=== PATIENT | male | born 1980 | race Caucasian/White ===

== ENCOUNTER 2016-09-07 07:40 | Inpatient (IN) | payer OTHER ==
[~2016-09-07] VITALS: Ht 177.8 cm; Wt 83.0 kg
[2016-09-07 10:49] VITALS: BP 135/81
--- NOTE | 2016-09-07 10:49 | NUR ---
Pre-admission: Seen patient in intake at this time. Alert and oriented x 4. Verbally responsive. Able to make his needs known. Able to answer questions on the admission process appropriately. Appears flushed. Respirations even and unlabored. No SOB noted. Skin warm and dry to touch. Abdomen soft and non-distended. BS (+) in all 4 quadrants. No complains of N/V/D or constipation noted. Reports LBM 09/07/2016. Reports allergies to PCN. Denies seizure history. Follows a regular diet at home. Reports having a PCP named Dr. Kevin Lee from [facility] in [facility], last seen was 1 week and a half ago for respiratory symptoms. Patient noted with runny nose and mild cough. Reports having a family hx of ETOH abuse on his paternal side. He states he has 2 kids, 17 and 7 years old in good general health condition. Patient reports being diagnosed with ADHD and anxiety "a few years ago." Substance Use as ff: 1. ETOH - since 13 years old. Patient drinks 2 beers to 1/5 Vodka on the weekends. Last drink was "1 [employer] at 0800 today." Patient states that he has been drinking at this rate everyday for a week and a half. He reports drinking when meth is not available and this has been going on daily for a week and a half. 2. Methamphetamine - since 23 years old. Patient snorts 1/4 oz daily. Last taken was 1 week and a half ago. 3. Xanax - since 13 years old. Patient was prescribed 0.5mg and takes 0.5mg daily but last time he used it was 2 months ago 4. Adderrall - since 13 years old. Patient was prescribed 15 mg a day. Last taken "15 mg, a week ago." Treatment History Patient reports being in a sober living in 2007, patient does not recall name and how many days he stayed. VS: BP 135/81, Pulse 97, RR 16, Temp 98.2, O2 sat 98%. PL 0/10.
[2016-09-07] MEDS ORDERED: AMPH15TA2 PO (11:35)
[2016-09-07] MEDS ORDERED: ALPR0.5T8 PO (11:35)
--- NOTE | 2016-09-07 11:45 | NUR ---
Admission Note: Patient is a 36 year old male who states that he is here to get help from his drinking. Patient is ambulatory ad gonzález with steady gait. Escorted on the unit with BHT. Orientation to the facility and the unit provided. Body search done. No contraband was found. Skin check done. No skin breakdown noted. No lesions. No rashes noted. Dr. Marcos in the unit and report was given. MD will enter in orders. All needs met and attended. On fall and seizure precautions.
[2016-09-07 12:00] VITALS: BP 132/88
[2016-09-07] MEDS ORDERED: DICYCLOMINE HCL 20 MG TABLET PO PRN (12:15)
[2016-09-07] MEDS ORDERED: ONDANSETRON ODT 4 MG TAB.RAPDIS SL PRN (12:15)
[2016-09-07] MEDS ORDERED: LORAZEPAM 2 MG/1 ML VIAL IM PRN (12:15)
[2016-09-07] MEDS ORDERED: LOPERAMIDE HCL 2 MG CAPSULE PO PRN (12:15)
[2016-09-07] MEDS ORDERED: MAG HYDROX/AL HYDROX/SIMETH 30 ML LIQUID UDC PO PRN (12:15)
[2016-09-07] MEDS ORDERED: ACETAMINOPHEN 325 MG TABLET PO PRN (12:15)
[2016-09-07] MEDS ORDERED: LORAZEPAM 1 MG TABLET PO PRN ×2 (12:15)
[2016-09-07] MEDS ORDERED: ONDANSETRON 4 MG/2 ML VIAL IM PRN (12:15)
[2016-09-07] MEDS ORDERED: MIRALAX 17 GM POWD.PACK PO PRN (12:15)
[2016-09-07] MEDS ORDERED: MAGNESIUM HYDROXIDE 30 ML LIQUID UDC PO PRN (12:15)
[2016-09-07] MEDS ORDERED: THIAMINE HCL 200 MG/2 ML VIAL IM ONE (12:30)
[2016-09-07 13:01] LABS: BASOPHILS # (AUTO) 0.3 K/uL (0.0-8.0); EOSINOPHILS # (AUTO) 0.2 K/uL (0.0-0.7); EOSINOPHILS % (AUTO) 2.6 % (0.0-7.0); HEMATOCRIT 51.8 % (40-50); LYMPHOCYTES % (AUTO) 32.7 % (20.5-51.5); MEAN CORPUSCULAR HEMOGLOBIN 31.4 UUG (27.0-31.0); MEAN CORPUSCULAR HGB CONC 35 g/dL (32.0-37.0); MEAN CORPUSCULAR VOLUME 90.3 FL (82.0-92.0); MONOCYTES # (AUTO) 0.6 K/uL (2.0-10.0); MONOCYTES % (AUTO) 6.9 % (0.0-11.0); NEUTROPHILS # (AUTO) 5.1 K/uL (1.8-8.9); NEUTROPHILS % (AUTO) 54.8 % (38.5-71.5); PLATELET COUNT (AUTO) 385 K/UL (150-450); RED BLOOD CELL COUNT(AUTO) 5.74 MIL/UL (4.7-6.1); RED CELL DISTRIBUTION WIDTH 12.8 % (11.5-14.5); WHITE BLOOD COUNT (AUTO) 9.2 K/UL (4.0-11.2)
[2016-09-07 13:12] LABS: ALBUMIN 3.9 g/dL (3.4-5.0); BILIRUBIN,TOTAL 0.3 mg/dL (0.2-1.0); CALCIUM 8.6 mg/dL (8.5-10.1); CREATININE 1.2 mg/dL (0.6-1.3); MAGNESIUM 1.5 mg/dL (1.8-2.4); POTASSIUM 4.2 mmol/L (3.5-5.1); TOTAL PROTEIN, SERUM 7.6 g/dL (6.4-8.2)
[2016-09-07 13:16] LABS: BASOPHILS % (MANUAL) 1 % (0-2); EOSINOPHILS % (MANUAL) 5 % (0-8); LYMPHOCYTES % (MANUAL) 39 % (20-40); METAMYELOCYTES % 1 % (0-1); MONOCYTES % (MANUAL) 3 % (2-10); NEUTROPHILS % (MANUAL) 51 % (42-75)
[2016-09-07 13:18] LABS: PLATELET ESTIMATE ADEQUATE
[2016-09-07 13:24] LABS: THYROID STIMULATING HORMONE 1.126 mIU/mL (0.358-3.740)
[2016-09-07 13:37] LABS: HIV-1 p24 ANTIGEN NON REACTIVE (NONREACTIVE); HIV-1/2 ANTIBODY NON REACTIVE (NONREACTIVE)
[2016-09-07] MEDS: GABAPENTIN 300 MG CAPSULE PO SCH ×2 (14:54→20:43)
[2016-09-07 15:12] LABS: *AMPHETAMINE, URINE NEGATIVE (NEGATIVE); *BARBITURATE, URINE NEGATIVE (NEGATIVE); *CANNABINOID, URINE POSITIVE (NEGATIVE); *COCCAINE, URINE NEGATIVE (NEGATIVE); *OPIATE, URINE NEGATIVE (NEGATIVE); *PHENCYCLIDINE SCREEN,URINE NEGATIVE (NEGATIVE)
[2016-09-07 16:00] VITALS: BP 160/112
[2016-09-07] MEDS: CLONIDINE HCL 0.1 MG TABLET PO PRN ×2 (17:02→20:54)
--- NOTE | 2016-09-07 17:02 | NUR ---
Clonidine 0.1mg PO and Ativan 1 mg PO given: Patient noted with BP 160/112. CIWA 8 presented with mild tremors, agitation, and anxiety. Denies any complain of headache, dizziness and chest pain. Medicated patient with Clonidine 0.1mg PO and Ativan 1 mg PO from PRN dose. Will monitor for effectiveness.
[2016-09-07 18:02] VITALS: BP 144/93
--- NOTE | 2016-09-07 18:02 | NUR ---
Re-assessment: LUCILLEWA 4. Patient presented with less anxiety and less sweating and tremors noted. BP 144/93.
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
[2016-09-07 20:00] VITALS: BP 160/109
[2016-09-07] MEDS: diphenhydrAMINE 50 MG CAPSULE PO PRN (20:53)
[2016-09-07] MEDS: IBUPROFEN 400 MG TABLET PO PRN (20:53)
--- NOTE | 2016-09-07 20:53 | NUR ---
PRN BENADRYL PO ADMINISTRATION Patient c/o insomnia and ask aid for sleep. PRN Benadryl given to patient as ordered with full glass of water. Patient tolerated well. Safety measures in the place by hospital policy: Call light within reach; Bed in the lowest position and locked; Padded rails up x2. Will to monitor closely.
--- NOTE | 2016-09-07 20:54 | NUR ---
PRN CATAPRES PO ADMINISTRATION PRN Catapres PO administrated as ordered for BP:160/101 with full glass of water. CIWA 7.Patient presented with anxiety, agitation, nervousness, bones ache, tremors, headache, and sweating. Patient denies SOB and chest pain. Will reassess in 1 hour.Patient tolerated well. Safety measures in the place by hospital policy: Call light within reach; Bed in the lowest position and locked; Padded rails up x2. Will to monitor closely.
[2016-09-07] MEDS ORDERED: MAGNESIUM OXIDE 400 MG TABLET PO ONE (21:15)
--- NOTE | 2016-09-07 21:53 | NUR ---
REASSESSMENT Patient is sleeping. Breathing is unlabored and even. RR:16. PRN Benadryl PO was effective.Safety measures in the place by hospital policy: Call light within reach; Bed in the lowest position and locked; Padded rails up x2. Will to monitor closely.
--- NOTE | 2016-09-07 21:54 | NUR ---
REASSESSMENT Patient is sleeping. BP:124/74. Breathing is unlabored and even. RR: 16. PRN Catapres PO was effective. Safety measures in the place by hospital policy: Call light within reach; Bed in the lowest position and locked; Padded rails up x2. Will to monitor closely.
[2016-09-08] VITALS (7 sets, daily range): BP systolic 122–169; BP diastolic 69–116
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
--- NOTE | 2016-09-08 07:09 | NUR ---
Start of Shift Notes: Received patient in his room. Alert and oriented x 4. Verbally responsive. Respirations even and unlabored. No SOB noted. Skin warm and dry to touch. Abdomen soft and non-distended with (+) BS in all 4 quadrants. No complains of N/V/D or constipation noted. Voids independently. Ambulatory ad gonzález with steady gait. Patient is a 36 year old male admitted for ETOH dependence who was placed on a 5-day Ativan taper as ordered. No adverse reactions noted. Has past medical hx of ADHD and anxiety. FULL CODE. Regular diet. On fall and seizure precautions. Taper will be started today. Educated patient on his current plan of care for the day and his medication regimen. Encouraged oral fluid intake and encouraged group participation to learn new skills to prevent relapse. Will continue to monitor closely
[2016-09-08] MEDS: LORAZEPAM 1 MG TABLET PO SCH ×4 (08:17→20:35)
[2016-09-08] MEDS: THIAMINE HCL 100 MG TABLET PO SCH (08:17)
[2016-09-08] MEDS: DOCUSATE SODIUM 250 MG CAPSULE PO SCH (08:17)
[2016-09-08] MEDS: MULTIVITAMINS,THERAPEUTIC TABLET PO SCH (08:18)
[2016-09-08] MEDS: GABAPENTIN 300 MG CAPSULE PO SCH ×3 (08:18→20:35)
[2016-09-08] MEDS: FOLIC ACID 1 MG TABLET PO SCH (08:18)
[2016-09-08] MEDS: CLONIDINE HCL 0.1 MG TABLET PO PRN ×2 (08:18→20:35)
--- NOTE | 2016-09-08 08:18 | NUR ---
Clonidine 0.1mg PO given: Patient noted with BP 169/112, Pulse 98. Denies any complains of chest pain, headache, chest tightness, dizziness, or blurred vision. Medicated patient with Clonidine 0.1mg PO as ordered and encouraged relaxation techniques.
[2016-09-08] MEDS: IBUPROFEN 400 MG TABLET PO PRN ×2 (08:40→14:09)
--- NOTE | 2016-09-08 08:40 | NUR ---
Motrin 400 mg PO given: Patient noted with complain of generalized muscle aches and pains 5/10. Medicated patient with Motrin 400 mg PO as ordered. Will monitor for effectiveness.
[2016-09-08] MEDS ORDERED: 5 DAY TAPER OF LORAZEPAM -SERENITY PROTOCOL PO PRN (09:00)
[2016-09-08] MEDS ORDERED: TUBERCULIN,PURIF.PROT.DERIV. 5 TU/0.1 ML TEST ID ONE (09:00)
--- NOTE | 2016-09-08 09:18 | NUR ---
Re-assessment: BP 155/94, P 104. Patient is in bed, laying down and resting. Will monitor closely.
--- NOTE | 2016-09-08 09:40 | NUR ---
Re-assessment: Per patient, PRN Motrin was effective in reducing muscle aches and pains. PL 05/14.
--- NOTE | 2016-09-08 11:00 | NUR ---
MD Communication: Patient noted with runny nose, non-productive cough, and muscle aches. Patient is afebrile. O2 sat 98% RA. Lung sounds clear. Notified Dr. Marcos with new orders. MD will enter in orders.
[2016-09-08] MEDS: ESCITALOPRAM OXALATE 10 MG TABLET PO SCH (13:34)
[2016-09-08] MEDS: GUAIFENESIN/DEXTROMETHORPHAN 5 ML UDC PO PRN ×2 (13:34→20:36)
--- NOTE | 2016-09-08 13:34 | NUR ---
Robitussin DM 10cc Po given: Patient noted with non-productive cough. Medicated patient with Robitussin DM 10CC PO as ordered. Will monitor effectiveness.
--- NOTE | 2016-09-08 14:10 | NUR ---
PRN Motrin 400 mg PO given: Patient complains of 5/10 sore throat. Medicated patient with Motrin 400 mg PO as ordered. Will monitor for effectiveness.
--- NOTE | 2016-09-08 14:34 | NUR ---
Re-assessment: Per patient, PRN Robitussin was effective in relieving cough.
--- NOTE | 2016-09-08 15:10 | NUR ---
Re-assessment: Per patient, PRN Motrin was effective in reducing patient's sore throat. PL 07/12.
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
[2016-09-08] MEDS: diphenhydrAMINE 50 MG CAPSULE PO PRN (20:35)
--- NOTE | 2016-09-08 20:36 | NUR ---
PRN Clonidine, Robitussin, and Benadryl administration Pt's reports feeing anxious and unable to fall asleep. He has an occasional cough. Pt is afebrile and lung sounds clear. B/P 160/104 and HR 88. PRN Clonidine, Robitussin, and Benadryl administered.
--- NOTE | 2016-09-08 21:36 | NUR ---
PRN Clonidine, Robitussin, and Benadryl reassessment PRN Clonidine, Robitussin, and Benadryl effective. He is lying comfortably in bed resting with eyes closed. B/P is 146/93 and HR 88.
[2016-09-09] VITALS (8 sets, daily range): BP systolic 136–167; BP diastolic 69–119
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
[2016-09-09 07:49] LABS: CREATININE 0.9 mg/dL (0.6-1.3); MAGNESIUM 1.8 mg/dL (1.8-2.4); POTASSIUM 4.2 mmol/L (3.5-5.1)
--- NOTE | 2016-09-09 10:00 | NUR ---
PRN Medication Administration Pt's BP is 151/111 so PRN Clonidine 0.1mg given as ordered. Will reassess in 1H.
[2016-09-09] MEDS: LORAZEPAM 1 MG TABLET PO SCH ×3 (10:08→21:45)
[2016-09-09] MEDS: GABAPENTIN 300 MG CAPSULE PO SCH ×3 (10:08→21:45)
[2016-09-09] MEDS: MULTIVITAMINS,THERAPEUTIC TABLET PO SCH (10:09)
[2016-09-09] MEDS: FOLIC ACID 1 MG TABLET PO SCH (10:09)
[2016-09-09] MEDS: DOCUSATE SODIUM 250 MG CAPSULE PO SCH (10:09)
[2016-09-09] MEDS: CLONIDINE HCL 0.1 MG TABLET PO PRN ×2 (10:09→17:44)
[2016-09-09] MEDS: ESCITALOPRAM OXALATE 10 MG TABLET PO SCH (10:09)
[2016-09-09] MEDS: THIAMINE HCL 100 MG TABLET PO SCH (10:09)
--- NOTE | 2016-09-09 11:00 | NUR ---
Reassessment Pt's BP decreased from 151/111 to 139/69; PRN Clonidine 0.1mg is somewhat effective. Will cont. to monitor the pt.
--- NOTE | 2016-09-09 17:45 | NUR ---
PRN Medication Administration Pt's BP is elevated 167/119; PRN Clonidine 0.1mg given and notified Dr. Barnett with new orders for Amlodipine in process and PRN Hydralazine in process. Will reassess in 1H.
[2016-09-09] MEDS ORDERED: hydrALAZINE HCL 25 MG TABLET PO PRN (18:15)
--- NOTE | 2016-09-09 18:15 | NUR ---
New Orders New Orders for Amlodipine and PRN Hyralazine needing Pharmacy verification; will endorse to night nurse to give after group therapy.
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
[2016-09-09] MEDS: AMLODIPINE 5 MG TABLET PO SCH (19:41)
[2016-09-09] MEDS: TRAZODONE 100 MG TABLET PO SCH (21:45)
[2016-09-10] VITALS: BP 131/84
--- NOTE | 2016-09-10 | NUR ---
0000 Vitals refused. CIWA deferred Pt refused to be woken for 0000 vitals. Respirations even and unlabored. CIWA ordered Q4HWA. Addendum: 09/10/16 at 0535 by YOVANNY VEE RN Correction: 0000 Vitals and CIWA obtained.
--- NOTE | 2016-09-10 04:00 | NUR ---
0400 Vitals refused. CIWA deferred Pt refused to be woken for 0400 vitals. Respirations even and unlabored. CIWA ordered Q4HWA.
[2016-09-10 05:06] LABS: HCV AB <0.1 s/co ratio (0.0-0.9); HEPATITIS B CORE AB, IgM Negative (Negative); HEPATITIS B SURFACE AG Negative (Negative)
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
[2016-09-10 08:00] VITALS: BP 149/93
[2016-09-10] MEDS: MULTIVITAMINS,THERAPEUTIC TABLET PO SCH (09:50)
[2016-09-10] MEDS: DOCUSATE SODIUM 250 MG CAPSULE PO SCH (09:50)
[2016-09-10] MEDS: FOLIC ACID 1 MG TABLET PO SCH (09:50)
[2016-09-10] MEDS: GABAPENTIN 300 MG CAPSULE PO SCH ×3 (09:50→21:35)
[2016-09-10] MEDS: ESCITALOPRAM OXALATE 10 MG TABLET PO SCH (09:50)
[2016-09-10] MEDS: THIAMINE HCL 100 MG TABLET PO SCH (09:50)
[2016-09-10] MEDS: LORAZEPAM 1 MG TABLET PO SCH ×4 (09:50→21:34)
[2016-09-10] MEDS: AMLODIPINE 5 MG TABLET PO SCH (09:51)
[2016-09-10 12:00] VITALS: BP 163/101
--- NOTE | 2016-09-10 14:20 | NUR ---
PRN Medication Administration Pt V/S stable, yet BP 163/101 HR 102 in bed at rest for 10 minutes after mild exercise in the activity room; PRN Hydralazine 25mg given as ordered. Will reassess in 1H.
--- NOTE | 2016-09-10 15:45 | NUR ---
Reassessment Pt is room at rest in bed in supine position watching television BP decreased from 163/105 & HR 102 to BP 155/104 & HR 85 at rest; Hydralazine 25mg is ineffective, notified Dr. Barnett with new orders in process. Will cont. to monitor the pt.
[2016-09-10 16:00] VITALS: BP 155/104
[2016-09-10] MEDS: HYDROXYZINE PAMOATE 25 MG CAPSULE PO PRN (17:08)
--- NOTE | 2016-09-10 17:08 | NUR ---
PRN Medication Administration Pt is in room in supine position with very restless feet, anxiety & irritability CIWA 8; PRN Vistaril 50mg given as ordered with scheduled medications. Will reassess in 30minuts to 1H.
[2016-09-10] MEDS ORDERED: hydrALAZINE HCL 25 MG TABLET PO PRN (17:15)
[2016-09-10] MEDS ORDERED: LORAZEPAM 1 MG TABLET PO ONE (17:15)
[2016-09-10] MEDS ORDERED: CLONIDINE HCL 0.2 MG TABLET PO ONE (17:15)
--- NOTE | 2016-09-10 18:20 | NUR ---
Reassessment & New Orders-Ativan Pt is still in room resting in bed in supine and watching television getting ready to go to cafeteria for dinner, BP 161/105 HR 85 at rest CIWA 8; New orders for Ativan 1mg ONCE and Clonidine 0.2mg ONCE given as ordered. New Order for modified Hydralazine 50mg PO Q6H PRN. Will endorse to night nurse to f/u with reassessment after group therapy. Will cont. to monitor the pt.
[2016-09-10] MEDS ORDERED: [UNRECOGNIZED DRUG - OTHER] (18:33)
[2016-09-10] MEDS ORDERED: HCG250DI SUBCUT (18:33)
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
[2016-09-10 20:00] VITALS: BP 121/68
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
[2016-09-10] MEDS ORDERED: AMLODIPINE 5 MG TABLET PO SCH (21:00)
[2016-09-10] MEDS: TRAZODONE 100 MG TABLET PO SCH (21:35)
[2016-09-10] MEDS: IBUPROFEN 400 MG TABLET PO PRN (21:39)
--- NOTE | 2016-09-10 21:40 | NUR ---
PRN Motrin administration Pt reports restless and aching legs. Ativan taper, routine Trazodone, and PRN Motrin administered.
--- NOTE | 2016-09-10 22:40 | NUR ---
PRN Motrin reassessment PRN Motrin effective. Pt is lying comfortably in bed with eyes closed. Respirations even and unlabored. Safety measures in place.
[2016-09-11] VITALS: BP 131/83
--- NOTE | 2016-09-11 04:00 | NUR ---
0400 Vitals refused. COWS deferred. Pt refused to be woken for 0400 vitals. CIWA ordered Q4HWA
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
[2016-09-11 08:00] VITALS: BP 138/88
[2016-09-11] MEDS: MULTIVITAMINS,THERAPEUTIC TABLET PO SCH (08:42)
[2016-09-11] MEDS: ESCITALOPRAM OXALATE 10 MG TABLET PO SCH (08:42)
[2016-09-11] MEDS: THIAMINE HCL 100 MG TABLET PO SCH (08:42)
[2016-09-11] MEDS: GABAPENTIN 300 MG CAPSULE PO SCH ×3 (08:43→21:41)
[2016-09-11] MEDS: FOLIC ACID 1 MG TABLET PO SCH (08:43)
[2016-09-11] MEDS: AMLODIPINE 5 MG TABLET PO SCH (08:44)
[2016-09-11] MEDS: LORAZEPAM 1 MG TABLET PO SCH ×3 (08:44→21:41)
--- NOTE | 2016-09-11 09:08 | NUR ---
START OF SHIFT Received report from shiftman nurse. Received patient laying in bed. Patient is 36 year old male admitted for medically supervised withdrawal from alcohol. Patient is full code, allergic to penicillin, on fall and seizure precaution, regular diet. On 5 Day Ativan taper. On assessment this AM: CIWA: 1. Patient reports mild tremors. Denies SOB, chest pain, n/v/d, sweating, denies any hallucinations or headache at this time. Recent VS: 138/88, HR 65, R16, T98.1, 0/10 pain and 97% 02 sat. Ativan po given as ordered. Med compliant. Patient reports good appetite, ate 100% breakfast. No PRN given at this time. Patient goes out with escort for fresh air breaks. Patient was encouraged to attend group meetings today. Patient did not verbalize any concerns at this time. Will continue to monitor patient.
[2016-09-11 13:45] VITALS: BP 153/100
[2016-09-11] MEDS ORDERED: METHOCARBAMOL 750 MG TABLET PO PRN (13:45)
--- NOTE | 2016-09-11 13:59 | NUR ---
PRN ROBAXIN Patient complained of neck spasm. PRN Robaxin given. Will continue to monitor patient.
[2016-09-11] MEDS: CLONIDINE HCL 0.1 MG TABLET PO PRN (14:08)
--- NOTE | 2016-09-11 14:08 | NUR ---
PRN CLONIDINE Patient has elevated BP 153/100, HR 94. Patient is asymptomatic at this time. Clonidine po given. Will continue to monitor patient.
--- NOTE | 2016-09-11 14:59 | NUR ---
REASSESSMENT PRN ROBAXIN Patient reported pain decreased from 4/10 to 2/10. PRN robaxin effective
[2016-09-11 16:00] VITALS: BP 149/96
--- NOTE | 2016-09-11 16:00 | NUR ---
REASSESSMENT Patient's BP after prn clonidine 149/96.
--- NOTE | 2016-09-11 19:20 | NUR ---
END OF SHIFT Patient is 36 year old male admitted for medically supervised withdrawal from alcohol. Patient is full code, allergic to penicillin, on fall and seizure precaution, regular diet. On 5 Day Ativan taper. Skin is intact, gait is steady and ambulates independently. Most recent assessment: CIWA: 1 (pt. reports anxiety. PRN Robaxin po for neck spasm and Clonidine given for high BP (153/100, HR 94). Recheck: 149/96, HR 95. BM X2. Tolerating meal without n/v. Attended group. All needs met. date night caregiverawake overnight counselor will continue to monitor patient.
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
[2016-09-11 20:00] VITALS: BP 132/78
[2016-09-11] MEDS: TRAZODONE 100 MG TABLET PO SCH (21:41)
[2016-09-12] VITALS: BP 135/83
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
[2016-09-12 08:01] VITALS: BP 134/103
[2016-09-12] MEDS: FOLIC ACID 1 MG TABLET PO SCH (08:24)
[2016-09-12] MEDS: GABAPENTIN 300 MG CAPSULE PO SCH ×3 (08:24→21:06)
[2016-09-12] MEDS: THIAMINE HCL 100 MG TABLET PO SCH (08:24)
[2016-09-12] MEDS: MULTIVITAMINS,THERAPEUTIC TABLET PO SCH (08:24)
[2016-09-12] MEDS: LORAZEPAM 1 MG TABLET PO SCH ×2 (08:24→21:06)
[2016-09-12] MEDS: ESCITALOPRAM OXALATE 10 MG TABLET PO SCH (08:24)
[2016-09-12] MEDS: AMLODIPINE 5 MG TABLET PO SCH (08:25)
--- NOTE | 2016-09-12 09:22 | NUR ---
START OF SHIFT Received report from welder 2nd shift nurse. Received patient laying in bed. Patient is 36 year old male admitted for medically supervised withdrawal from alcohol. Patient is full code, allergic to penicillin, on fall and seizure precaution, regular diet. On 5 Day Ativan taper. On assessment this AM: CIWA: 1. Patient mild anxiety. Denies SOB, chest pain, tremors, n/v/d, sweating, any hallucinations or headache at this time. Recent VS: 134/103, HR 70, R18, T98, 0/10 pain and 98% 02 sat room air. Ativan po given as ordered. Med compliant. Patient reports having good appetite, ate 100% breakfast. No PRN given at this time. Patient goes out with escort for fresh air breaks. Patient was encouraged to attend group meetings today. Patient did not verbalize any concerns at this time. Will continue to monitor patient.
[2016-09-12 13:00] VITALS: BP 155/103
[2016-09-12] MEDS: CLONIDINE HCL 0.1 MG TABLET PO PRN (13:51)
--- NOTE | 2016-09-12 13:51 | NUR ---
PRN CLONIDINE Patient's BP 155/103, HR 95. Patient is asymptomatic at this time. PRN clonidine given. Will continue to monitor patient.
--- NOTE | 2016-09-12 14:51 | NUR ---
REASSESSMENT (CLONIDINE) Deferred reassessment, patient does not want to be bothered while taking a nap. Will recheck blood pressure at 16:00pm per patient's request.
[2016-09-12 16:00] VITALS: BP 147/98
--- NOTE | 2016-09-12 16:00 | NUR ---
REASSESSMENT (CLONIDINE) Patient's BP 147/98, HR 90. Patient is asymptomatic at this time.
--- NOTE | 2016-09-12 18:53 | NUR ---
END OF SHIFT Patient is 36 year old male admitted for medically supervised withdrawal from alcohol. Patient is full code, allergic to penicillin, on fall and seizure precaution, regular diet. On 5 Day Ativan taper. Skin is intact, gait is steady and ambulates independently. Most recent assessment: CIWA: 1 (pt. reports mild anxiety. PRN Clonidine given for high BP (155/103, HR 95). Recheck: 148/98, HR 90. BM X2. Tolerating meal without n/v. Attended group. All needs met. night shiftairplane gastank liner assembler will continue to monitor patient.
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
[2016-09-12] MEDS: TRAZODONE 100 MG TABLET PO SCH (21:06)
[2016-09-13] VITALS: BP 148/96
[2016-09-13 06:00] VITALS: BP 112/72
--- NOTE | 2016-09-13 06:54 | NUR ---
END OF SHIFT NOTE : Pt. is a 36 yo male admitted to [facility] on 09/07 for ETOH and Meth dependence. He is A&O x4 and ambulatory. Allergic to PCNs, full code status, and on regular diet. He started on a 5 day Ativan taper on 09/08/2016. Pt remains compliant with the treatment plan. No PRNs were given during my shift. V/S remain WNL. RR=16, even and unlabored, lungs clear upon auscultation, abdomen soft and non- distended. Pt denies nausea, vomiting and diarrhea. LAST CIWA= 1 at 0400 , INTAKE=1,446 ml, voided x 2, slept 6 hours. Safety measures in place : bed on lowest position with side rails x2 up for safety, call light within reach. Will continue to monitor closely and offer help.
[2016-09-13 08:00] VITALS: BP 135/98
--- NOTE | 2016-09-13 08:15 | NUR ---
START OF SHIFT: RECEIVED PT A/O X 4. HE STATES HE FEELS GOOD AND THE DETOX MEDS WERE EFFECTIVE. ATIVAN TAPER IS COMPLETED. HE STATES HE SLEPT WELL AND IS EATING 100% OF MEALS. CIWA 2. PT STATES HE IS ATTENDING GROUPS AND EXPRESSED ENTHUSIASM TOWARD RECOVERY. WILL CONTINUE TO MONITOR AND OFFER SAFE AND SUPPORTIVE ENVIRONMENT.
[2016-09-13] MEDS: FOLIC ACID 1 MG TABLET PO SCH (08:57)
[2016-09-13] MEDS: AMLODIPINE 5 MG TABLET PO SCH (08:57)
[2016-09-13] MEDS: GABAPENTIN 300 MG CAPSULE PO SCH ×3 (08:57→21:00)
[2016-09-13] MEDS: MULTIVITAMINS,THERAPEUTIC TABLET PO SCH (08:57)
[2016-09-13] MEDS: THIAMINE HCL 100 MG TABLET PO SCH (08:57)
[2016-09-13] MEDS: ESCITALOPRAM OXALATE 10 MG TABLET PO SCH (08:58)
[2016-09-13 12:00] VITALS: BP 156/110
[2016-09-13] MEDS: CLONIDINE HCL 0.1 MG TABLET PO PRN ×2 (13:23→20:26)
--- NOTE | 2016-09-13 13:25 | NUR ---
PRN CLONIDINE GIVEN FOR ELEVATED BP. WILL MONITOR EFFECTIVENESS.
--- NOTE | 2016-09-13 14:25 | NUR ---
CLONIDINE NOT EFFECTIVE.BP 154/104 WILL ADMINISTER HYDRALAZINE ORDERED PRN.
[2016-09-13 15:06] LABS: *AMPHETAMINE, URINE NEGATIVE (NEGATIVE); *BARBITURATE, URINE NEGATIVE (NEGATIVE); *CANNABINOID, URINE NEGATIVE (NEGATIVE); *COCCAINE, URINE NEGATIVE (NEGATIVE); *OPIATE, URINE NEGATIVE (NEGATIVE); *PHENCYCLIDINE SCREEN,URINE NEGATIVE (NEGATIVE)
--- NOTE | 2016-09-13 15:40 | NUR ---
BP 135/98 P 97. PRN HYDRALAZINE EFFECTIVE.
[2016-09-13 16:00] VITALS: BP 135/98
--- NOTE | 2016-09-13 18:34 | NUR ---
END OF SHIFT: PT COMPLETED ATIVAN TAPER AND IS SCHEDULED FOR DISCHARGE IN AM.LAST CIWA 1. HIS BP SPIKED AND PRN CLONIDINE AND HYDRALAZINE GIVEN AND HYDRALAZINE EFFECTIVE. HE ATTENDED GROUPS AND INTERACTED WITH PEERS. HE STATES HE FEELS ENTHUSIASTIC ABOUT RECOVERY AND FEELS READY TO MOVE FORWARD. PT STATES HIS APPETITE IS GOOD. WILL PASS SHIFT REPORT TO ONCOMING NIGHT NURSE.
[2016-09-13 20:00] VITALS: BP 145/105
--- NOTE | 2016-09-13 20:00 | NUR ---
Start of Shift Note: Report received from day shift nurse. Pt is a 36 yo male admitted for medically-supervised withdrawal from ETOH. Pt reports drinking 2 beers to 750ml vodka daily for 10 days; pt also reports use of methamphetamine, Xanax, Adderall, and marijuana. Pt has completed a 5-day Ativan taper and is to discharge tomorrow. Pt received with last day shift CIWA=1, and PRN Clonidine and PRN Hydralazine were given during day shift for increased BP. Pt reports allergy to PCN. Pt is on a regular diet. Pt reports med hx: anxiety and ADHD. Pt received in room and reports anxiety; pt verbalized readiness for discharge. Bed is in low position and locked, side rails up x2, call light within reach. Will continue to monitor.
[2016-09-13] MEDS: HYDROXYZINE PAMOATE 25 MG CAPSULE PO PRN (20:26)
[2016-09-13] MEDS: TRAZODONE 100 MG TABLET PO SCH (20:26)
--- NOTE | 2016-09-13 20:26 | NUR ---
PRN Vistaril and PRN Clonidine: Patient complains of increased anxiety. Administered PRN Vistaril as ordered. Patient's BP elevated at 145/105. Administered PRN Clonidine as ordered. Will continue to monitor.
[2016-09-13] MEDS ORDERED: CLON0.1T14 PO (20:28)
[2016-09-13] MEDS ORDERED: ESCI10TA PO (20:28)
[2016-09-13] MEDS ORDERED: HYDR-3895 PO (20:28)
[2016-09-13] MEDS ORDERED: Trazodone Hcl PO (20:28)
[2016-09-13] MEDS ORDERED: METH-33 PO (20:28)
[2016-09-13] MEDS ORDERED: AMLO5TAB2 PO (20:28)
--- NOTE | 2016-09-13 21:00 | NUR ---
Gabapentin Refused: Patient refuses 21:00 ordered Gabapentin. Patient educated on risks and benefits, but states, "It makes me feel weird." Will continue to monitor.
--- NOTE | 2016-09-13 21:30 | NUR ---
PRN Reassessment: Patient reports that anxiety has decreased. PRN Vistaril effective. BP one hour after PRN Clonidine administration decreased from 145/105 to 124/83. Medication effective. Will continue to monitor.
[2016-09-14] VITALS: BP 112/68
--- NOTE | 2016-09-14 | NUR ---
CIWA Deferred: Ordered 00:00 CIWA Q4HWA assessment is deferred for sleep. V/S stable. All safety precautions are in place. Will continue to monitor. Addendum: 09/14/16 at 0243 by STEPHANIE FRANCIS RN Amended: Links added.
--- NOTE | 2016-09-14 00:22 | NUR ---
Start of Shift Note: Report received from day shift nurse. Pt is a 36 yo male admitted for medically-supervised withdrawal from ETOH. Pt reports drinking 2 beers to 750ml vodka daily for 10 days; pt also reports use of methamphetamine, Xanax, Adderall, and marijuana. Pt has completed a 5-day Ativan taper and is to discharge tomorrow. Pt received with last day shift CIWA=1, and PRN Clonidine and PRN Hydralazine were given during day shift for increased BP. Pt reports allergy to PCN. Pt is on a regular diet. Pt reports med hx: anxiety and ADHD. Pt received in room and reports anxiety; pt verbalized readiness for discharge. Bed is in low position and locked, side rails up x2, call light within reach. Will continue to monitor. Addendum: 09/14/16 at 0023 by STEPHANIE FRANCIS RN Wrong time entered. Correct time is 20:00
--- NOTE | 2016-09-14 04:00 | NUR ---
Vitals Refused, CIWA Deferred: Patient refuses 04:00 vitals assessment. Patient educated on risks and benefits but became increasingly agitated and again refused. Patient states that he wants to sleep. CIWA deferred for sleep. All safety precautions are in place. Will continue to monitor. Addendum: 09/14/16 at 0442 by STEPHANIE FRANCIS RN Amended: Links added.
--- NOTE | 2016-09-14 07:09 | NUR ---
End of Shift Note: Pt is a 36 yo male admitted to [facility] on 09/07/16 for medically-supervised withdrawal from ETOH. Pt reports med hx: anxiety and ADHD. Pt reports allergy to PCN and is on a regular diet. Pt reports drinking 2 beers to 750ml vodka daily for 10 days; pt also reports use of methamphetamine, Xanax, Adderall, and marijuana. Pt has completed a 5-day Ativan taper and is to discharge today. Scheduled medication regime effectively managed s/s of withdrawal this shift, in addition to PRN Vistaril for anxiety. Last CIWA=2 at 20:00. V/S stable throughout shift, with elevated BP of 145/105 at 20:00, and PRN Clonidine was given which was effective. Total fluid intake this shift: 1262 ml; output: urine x 3 and BM x 0. Pt currently in bed and 9 hours this shift. Pt endorsed to day shift nurse.
--- NOTE | 2016-09-14 08:20 | NUR ---
START OF SHIFT: RECEIVED PT A/O X 4. HE PRESENTS WITH ANXIOUS MOOD AND CONGRUENT AFFECT. DISCHARGE PLANNING IN PROGRESS FOR THIS AM. PT STATES HE IS ENTHUSIASTIC BUT A BIT NERVOUS ABOUT GOING TO TREATMENT TODAY. MEDICATED ORDERED. OFFERED SUPPORT.
[2016-09-14] MEDS ORDERED: Gabapentin PO (08:31)
[2016-09-14 08:54] VITALS: BP 122/79
[2016-09-14] MEDS: MULTIVITAMINS,THERAPEUTIC TABLET PO SCH (08:54)
[2016-09-14] MEDS: AMLODIPINE 5 MG TABLET PO SCH (08:54)
[2016-09-14] MEDS: FOLIC ACID 1 MG TABLET PO SCH (08:55)
[2016-09-14] MEDS: ESCITALOPRAM OXALATE 10 MG TABLET PO SCH (08:55)
[2016-09-14] MEDS: THIAMINE HCL 100 MG TABLET PO SCH (08:55)
[2016-09-14] MEDS: GABAPENTIN 300 MG CAPSULE PO SCH (08:55)
--- NOTE | 2016-09-14 09:55 | NUR ---
DISCHARGE: PT A/O X 4. HE DENIES S/I AND H/I. BELONGINGS RETURNED. EDUCATED PT ON DISCHARGE INSTRUCTIONS AND MEDICATIONS. HIS AFFECT IS BRIGHTER. STONE BREAKER ESCORTED PT TO [facility] WHERE HE WAS TRANSPORTED BY [employer] TO ABLE TO CHANGE AT 0936.
[2016-09-16 17:07] LABS: *BENZODIAZEPINES Negative (Cutoff=300); *CANNABINOID (THC) Positive (.)
== END 2016-09-14 09:36 | disposition other institution (70) | DRG 895 ==
LOC: SRC 11:21
PROVIDERS: ADMIT Internal Medicine; ATTEND Internal Medicine
PROC: HZ2ZZZZ Detoxification Services for Substance Abuse Treatment (ICD-10-PCS; principal; 2016-09-07)
PROC: HZ41ZZZ Group Counseling for Substance Abuse Treatment, Behavioral (ICD-10-PCS; 2016-09-10)
DX: F10.230 Alcohol dependence with withdrawal, uncomplicated (principal); F33.1 Major depressive disorder, recurrent, moderate; Y90.9 Presence of alcohol in blood, level not specified; E83.42 Hypomagnesemia; F90.9 Attention-deficit hyperactivity disorder, unspecified type; F41.9 Anxiety disorder, unspecified; Z73.6 Limitation of activities due to disability; J06.9 Acute upper respiratory infection, unspecified; G47.00 Insomnia, unspecified; I10 Essential (primary) hypertension; Z79.899 Other long term (current) drug therapy; F17.210 Nicotine dependence, cigarettes, uncomplicated
CPT/HCPCS: 36415; 70030-TC; 80307; 80346; 80349; 83690; 83735; 84443; 85025; 86580; 86592; 86705; 86803; 87340; 87806; G6040-TC; J3411; Q0163